=== PATIENT | male | born 1985 | race Caucasian/White ===

== ENCOUNTER 2020-09-03 15:03 | Emergency (ER) | payer OTHER, SELFPAY ==
--- NOTE | 2020-09-03 15:45 | PC.NURSE ---
PT HAS BEEN CALLED X 3. ON FINAL CALL, PT REPORTED HE WAS AT HOME AND JUST CALLED TO CHECK IN. HAS BEEN A NO SHOW AT THIS TIME.
== END 2020-09-03 15:45 | disposition left against medical advice (07) ==
LOC: EXPBETH 15:16
PROVIDERS: Emergency Provider Nurse Practitioner Family
DX: Z53.21 Procedure and treatment not carried out due to patient leaving prior to being seen by health care provider (principal)
CPT/HCPCS: 99199

== ENCOUNTER 2021-10-01 10:05 | Emergency (ER) | payer OTHER, SELFPAY ==
--- NOTE | 2021-10-01 10:17 | ED.SKABFB ---
HPI - Skin/Abscess/Foreign Bdy General Chief complaint: Wound/Laceration Stated complaint: Insect Bite Time Seen by Provider: 10/01/21 10:17 Source: patient Mode of arrival: ambulatory Limitations: no limitations History of Present Illness HPI narrative: Mr. Jin is a 36-year-old male patient presenting to the clinic today with complaints of possible insect bite to the right lateral thigh. He reports that he first noticed this on Friday. Denies seeing any insect bite him-this has gradually gotten worse. Denies any fever or chills however it is becoming more painful and growing in size. Related Data Allergies Allergy/AdvReac Type Severity Reaction Status Date / Time No Known Allergies Allergy Verified 10/01/21 10:22 Review of Systems Review of Systems: Pertinent positives per HPI. Patient denies any fever, chills, rash, headache, visual changes, dizziness, cough, runny nose, sore throat, shortness of breath, chest pain, palpitations, nausea, vomiting, diarrhea, constipation, abdominal pain, or any urinary issues. PMFSH Comments At the time of my signature, I reviewed and agree with the nursing past medical, surgical, social, and family history. There is no relevant family history pertinent to the patient complaint. Exam Narrative: General: Well-developed, well nourished, in no apparent distress Head: Normocephalic, atraumatic. Cardio: Regular rate and rhythm, s1 and s2 normal, no murmur appreciated. Resp: Clear to auscultation bilaterally, no rhonchi, rales, wheezing or rubs. Integumentary: [place], warm, and dry, red, tender, erythemic, fluctuant skin/subcutaneous abscess to the right lateral thigh that is the size of a baseball in induration. No drainage noted Course Course Emergency Course: Portions of this record may have been created with voice recognition software. Level of Care: Express Care Visit Vital Signs Vital signs: Vital signs reviewed Procedures Abscess I/D lower extremity: Date of Incision: 10/01/21 Side (if applicable): right Local Anesthetic: lidocaine 1% Technique: incised with #11 blade Amount of fluid expressed (mL): 5 Irrigation: No Packing used?: none I&D Results: Pus and Blood Abcess I&D Additional Comments: Verbal consent obtained for incision and drainage of the right lateral thigh abscess. Risk and benefits explained and patient voiced understanding. Area was cleansed with technique care. Area was prepped and draped using sterile technique. 25 gauge needle was then used to instill 5 ml of lidocaine without epi into the wound edges. Patient tolerated well and anesthesia was appropriate. An 11 blade scalpel was then used to make a 0.5cm incision over the abscess. White bloody exudate expressed from cavity. Wound culture obtained and sent to lab. Patient tolerated procedure well. MDM - Skin/Abscess/Foreign Bdy MDM Narrative Medical decision making narrative: At the time of assessment patient is resting comfortably on the exam table. He reports that he first noticed this knot to his skin on Friday and this has gradually gotten worse. With assessments this appears to be an abscess that is fluctuant with baseball size induration. Discussed incision and drainage and patient agreed to this. Incision and drainage was performed and patient tolerated very well. Placed patient on doxycycline and supportive measures discussed and he voiced understanding of discharge instructions. Differential Diagnosis Differential diagnosis: Likely abscess of skin or subcutaneous tissue, cellulitis and insect bites Discharge Plan Discharge Clinical Impression: Abscess of skin Qualifiers: Site of cutaneous abscess: extremity Site of cutaneous abscess of extremity: lower extremity Laterality: right Qualified Code(s): L02.415 - Cutaneous abscess of right lower limb Patient Disposition: Home, Self-Care Condition: Stable Instructions: Antibiotic Form,
[2021-10-01 10:20] VITALS: BP 132/74; PULSE 102; RESP 18; TEMP 36.6; O2SAT 98
== END 2021-10-01 10:50 | disposition home or self-care (01) ==
PROVIDERS: Emergency Provider Nurse Practitioner Family
DX: L02.415 Cutaneous abscess of right lower limb (principal)
CPT/HCPCS: 10060; 87070; 87205; 99213; G0463